=== PATIENT | female | born 1980 ===

== ENCOUNTER 2019-06-03 09:36 | Outpatient (CLI) | payer BC ==
--- NOTE | 2019-06-03 10:00 | RAD ---
EXAM: Chest PA and lateral: HISTORY: Cough COMPARISON: none FINDINGS: Lung alonzo are clear. Vascular markings are normal. Heart and mediastinum appear unremarkable. Osseous structures are unremarkable. IMPRESSION: Unremarkable chest
== END 2019-06-03 09:37 | disposition home or self-care (01) ==
LOC: BICRAD 09:36
PROVIDERS: ATTEND Family Medicine
DX: R05 Cough (principal)
CPT/HCPCS: 71046